=== PATIENT | male | born 1945 | race Caucasian/White ===

== ENCOUNTER 2021-06-09 10:43 | Emergency (ER) | payer MEDICARE, OTHER, SELFPAY ==
--- NOTE | ~2021-06-09 | CT_ITS ---
EXAMINATION: CT HEAD WITHOUT CONTRAST CT CERVICAL SPINE WITHOUT CONTRAST CLINICAL INFORMATION: Reason for Exam fall hit head COMPARISON: CT of the cervical spine and head done on 04/25/2009. TECHNIQUE: Imaging was performed from the skull base to vertex without intravenous administration of contrast. In addition, helical noncontrast CT imaging was acquired through the cervical spine and source images were reviewed along with axial reconstructions and sagittal and coronal MPRs. This CT examination was performed using dose optimization techniques as appropriate, variously including the following: *Automated exposure control. *Adjustment of mA and/or kV according to patient size (this includes techniques or standardized protocols for targeted exams where dose is matched to indication/reason for exam; i.e. extremities or head). *Use of iterative reconstruction technique. Total exam dose-length product 766.64 mGy-cm FINDINGS: HEAD: No intracranial mass, hemorrhage, or midline shift is visualized. The ventricles and sulci are age-appropriate. No extra-axial collections are identified. Partial opacification of the visualized part of the right maxillary, bilateral ethmoidal, right sphenoidal sinuses with hyperdense material, suspicious for allergic fungal sinusitis. CERVICAL SPINE: Multilevel mild degenerative spondylosis related changes are present. Mild facet degenerative arthritic changes are also noted. There is no evidence of acute cervical spine fracture. Vertebral bodies remain normal in height, and alignment is anatomic. No prevertebral or paravertebral soft tissue abnormality is identified. Limited assessment of the lung apices is unremarkable. CT/CT cervical spine wo con IMPRESSION: 1. No acute intracranial pathology. 2. No CT evidence of acute cervical spine fracture or traumatic subluxation. 3. No significant change since most recent prior available CT scan of the head and cervical spine done on 05/25/2019, except for the interval development of paranasal sinus disease as described above.
[2021-06-09 10:46] VITALS: BP 163/70; PULSE 64; RESP 18; TEMP 37.3; O2SAT 97; BMI 26.5
--- NOTE | 2021-06-09 11:45 | PC.NURSE ---
Pt alert and oriented x3. Pt states this morning he feel 6 ft from ladder hitting his head on the concrete. Pt denies loc. no dizziness prior to fall. Ladder fell apart causing pt to fall. Swelling noted to the back of head. Pt's systolic BP low 170s on arrival to the ed. current bp 137/69. Pt c/o soreness with movement. Neuros intact, equal bilat upper and lower extremities. Stabilizing neck collar applied until further evaluation. no apparent distress noted.
--- NOTE | 2021-06-09 12:01 | ED.FALL ---
HPI - Fall General Chief Complaint: Fall Stated Complaint: fall Time Seen by Provider: 06/09/21 11:56 Source: patient Mode of arrival: ambulatory Limitations: no limitations History of Present Illness HPI Narrative: 75-year-old male on aspirin presents emergency department after a 6 ft fall from ladder he hit his head on the ground. Patient denies loss of conscious had some tingling in his hands when he initially fell he denies any pain any other areas he is moving all extremities well he he denies loss of consciousness denies nausea vomiting or diarrhea. MD complaint: fall Related Data Allergies Allergy/AdvReac Type Severity Reaction Status Date / Time Beta-Blockers Allergy Unknown SHORTNESS Unverified 07/26/20 14:47 (Beta-Adrenergic Bloc OF BREATH ezetimibe [From Zetia] Allergy Unknown MYALGIA Unverified 07/26/20 14:47 lisinopril [Lisinopril] Allergy Unknown RASH Unverified 07/26/20 14:47 Review of Systems Review of Systems: Review of systems: General: Patient denies any fever chills recent illness or falls Musculoskeletal: Denies back pain or body aches or other injuries HEENT: denies headache, runny nose, ear pain Respiratory: denies shortness of breath, cough Cardiovascular: no chest pain or palpitations : denies dysuria, frequency Abdomen: no nausea vomiting denies abdominal pain Extremities: no swelling, no pain Skin: no diaphoresis Yes all other systems are reviewed and are negative PMFSH Past Medical History Medical History (Updated 06/09/21 @ 13:54 by Dereck Graham DO) Asthma Heart attack Surgical History (Updated 06/09/21 @ 10:50 by Sharifa Snowden) History of open heart surgery Social History Social History Advance Directives: No Advance Directives Information Provided: Yes Physical Exam Vital Signs: Vital Signs: Last Vital Signs Temp 99.1 F 06/09/21 10:46 Pulse 64 06/09/21 10:46 Resp 18 06/09/21 10:46 BP 163/70 H 06/09/21 10:46 Pulse Ox 97 06/09/21 10:46 Body Mass Index 26.5 General: Well-appearing well-nourished in no signs of distress HEENT: No hematotympanum nasal septal hematoma patient has a large hematoma to the back of her head Neck: No signs of JVD, no masses no tenderness or lymphadenopathy Cardiovascular: Regular rate and rhythm Respiratory: Clear to auscultation bilaterally Abdomen: Soft nontender no masses Extremities: Normal pedal pulses no signs of edema Skin: Dry warm no rashes Back: No tenderness full ROM MDM - Fall MDM Narrative Medical decision making narrative: Patient looks well I will give patient for CT scan head neck patient does not want anything for pain at this time. There is no open wound from me to close. CT is okay. I will send the patient home. Medical Records Attestation: I reviewed the patient's medical records. Lab Data Attestation: I reviewed the patient's lab results. Discharge Plan Discharge Clinical Impression: Concussion without loss of consciousness, Head injury, Hematoma Patient Disposition: Home, Self-Care Instructions: Hematoma (ED), Concussion (ED), Head Injury (ED) Additional Instructions: Please take it easy the next few days. You can take tylenol or ibuprofen for your head. If you have any other concerns please return to the ED.
== END 2021-06-09 14:04 | disposition home or self-care (01) ==
PROVIDERS: Emergency Provider Student in an Organized Health Care Education/Training Program; PCP Internal Medicine
DX: S06.0X1A Concussion with loss of consciousness of 30 minutes or less, initial encounter (principal); S00.03XA Contusion of scalp, initial encounter; G44.309 Post-traumatic headache, unspecified, not intractable; M54.2 Cervicalgia; W17.89XA Other fall from one level to another, initial encounter; Y93.9 Activity, unspecified; Y92.9 Unspecified place or not applicable; Y99.9 Unspecified external cause status
CPT/HCPCS: 70450; 72125; 99283

== ENCOUNTER 2024-02-13 07:52 | Observation (INO) | payer MEDICARE, OTHER, SELFPAY ==
[2024-02-13] VITALS (10 sets, daily range): BP systolic 123–178; BP diastolic 64–78; PULSE 70–98; RESP 16–19; TEMP 36–37.2; O2SAT 88–98; BMI 27.3; BMI 26.9
--- NOTE | ~2024-02-13 | XR_ITS ---
EXAMINATION: XR CHEST CLINICAL INFORMATION: Dyspnea, lower extremity edema. COMPARISON: None available. TECHNIQUE: 2 views of the chest were obtained. FINDINGS: Midline sternotomy wires. Mediastinal surgical clips. Normal heart size. Diffuse interstitial prominence and parenchymal haziness. No dense consolidation, pleural effusion or pneumothorax. Thoracic spondylosis. No acute osseous findings. Visualized upper abdomen is within normal limits. XR/XR chest 2V IMPRESSION: Diffuse interstitial prominence and parenchymal haziness raising the possibility of pulmonary edema and/or atypical/viral infection. Recommend clinical correlation and short-term follow-up.
--- NOTE | 2024-02-13 08:01 | ED.GENADULT ---
HPI - General Adult General Chief complaint: Dyspnea Stated complaint: SOB Time Seen by Provider: 02/13/24 08:00 Source: patient, EMS and RN notes reviewed Mode of arrival: EMS Limitations: no limitations History of Present Illness HPI narrative: Patient is a 78-year-old male with history of asthma, HTN presenting to the emergency department with complaint of progressively worsening dyspnea over the past week. Reports dyspnea is worse with exertion. He reports occasional nonproductive cough, nasal congestion. Denies fevers. Denies chest pain or palpitations. Does endorse edema to left lower extremity which he feels is worse as the day progresses. Denies calf pain or swelling. Has been using albuterol inhaler with temporary relief. He does not have a nebulizer at home. Reports that his oxygen saturation was 80% on room air at home, upon EMS arrival patient was found to have oxygen saturation of 98% on room air. MD complaint: Dyspnea Onset (ago): week(s) Relieving factors: rest Exacerbating factors: movement Associated symptoms: cough Treatments prior to arrival: other Related Data Home Medications ?Medication ?Instructions ?Recorded ?Confirmed amlodipine 5 mg tablet 5 mg PO DAILY 02/13/24 02/13/24 aspirin 81 mg tablet,delayed 81 mg PO DAILY 02/13/24 02/13/24 release atorvastatin 40 mg tablet 40 mg PO DAILY 02/13/24 02/13/24 budesonide 90 mcg/actuation breath 1 inh inhalation BEDTIME 02/13/24 02/13/24 activated powder inhaler (Pulmicort Flexhaler) krill 1,000 mg-omega-3 170 mg-dha 1 cap PO DAILY 02/13/24 02/13/24 50 mg-epa 80 id-tmkuko-mglsg capsule (krill oil) lansoprazole 30 mg capsule,delayed 30 mg PO BID 02/13/24 02/13/24 release montelukast 10 mg tablet 10 mg PO DAILY 02/13/24 02/13/24 multivitamin 1 tab PO DAILY 02/13/24 02/13/24 triamcinolone acetonide 55 mcg 1 spray intranasal BEDTIME 02/13/24 02/13/24 nasal spray aerosol (Nasacort) Previous Rx's ?Medication ?Instructions ?Recorded albuterol sulfate 90 mcg/actuation 2 puff inhalation Q4-6H PRN 04/06/24 aerosol inhaler shortness of breath or wheezing #6.7 grams azithromycin 250 mg tablet 250 mg PO DAILY 4 days #4 tabs 02/13/24 prednisone 20 mg tablet 40 mg (2 x 20 mg) PO DAILY #8 tabs 02/13/24 Allergies Allergy/AdvReac Type Severity Reaction Status Date / Time Beta-Blockers Allergy Unknown SHORTNESS Verified 02/13/24 08:04 (Beta-Adrenergic Bloc OF BREATH ezetimibe [From Zetia] Allergy Unknown MYALGIA Verified 02/13/24 08:04 lisinopril [Lisinopril] Allergy Unknown RASH Verified 02/13/24 08:04 Review of Systems Review of Systems: As per HPI. Yes all other systems are reviewed and are negative Constitutional: Constitutional: Reports as per HPI [facility] Past Medical History Medical History (Updated 02/13/24 @ 16:47 by DEANNA Dang) GERD (gastroesophageal reflux disease) HLD (hyperlipidemia) HTN (hypertension) Heart attack Asthma Surgical History (Updated 02/13/24 @ 16:40 by DEANNA Dang) S/P CABG (coronary artery bypass graft) History of open heart surgery Social History Social History Household Members: Family and None Housing: House Do you presently have visiting nurse or other home services: No Patient Tobacco Use Status: Never used Tobacco Use of substances other than those prescribed or required for medical reasons: No Currently Displaying Signs/Symptoms of Drug Intoxication Withdrawal: No Have you been hit, kicked, punched, or otherwise hurt by someone within the past year? If so, by whom?: No Do you feel safe in your current relationship?: Yes Is there a partner from a previous relationship who is making you feel unsafe now?: No Are you made to feel afraid or neglected: No Advance Directives: No Do you have thoughts of harming others: None Do you have a plan to hurt others: No Plan Recently lost weight without trying: No Nutrition Risks: No Nutritional Risk Poor oral hygiene: No Physical Exam ED Vital Signs: Vital Signs - 24 hr 02/13/24 08:02 02/13/24 10:06 02/13/24 13:12 Temperature 98 F Pulse Rate 70 77 76 Respiratory Rate 18 19 17 Blood Pressure 123/69 124/68 135/73 Pulse Oximetry 97 92 95 Oxygen Delivery Method Room Air Room Air Nasal Cannula Oxygen Flow Rate 1 02/13/24 15:28 Temperature 98.9 F Pulse Rate 75 Respiratory Rate 16 Blood Pressure 128/72 Pulse Oximetry 93 Oxygen Delivery Method Nasal Cannula Oxygen Flow Rate 1.5 BMI result Body Mass Index 27.3 Vital signs have been reviewed and appear to be correct. Blood pressure normal. Heart rate normal. Respiratory rate normal. Temperature normal. Oxygen saturation normal. Const General: cooperative, healthy appearing and no acute distress Orientation/consciousness: oriented to person, oriented to place, oriented to time and patient oriented x3 Limitations: no limitations HENMS Head: Yes normocephalic and Yes atraumatic Ears: external ears normal General nose exam: Normal external nose present Face and sinus: Yes face symmetric Mouth: oropharynx normal and moist mucous membranes Throat: Yes uvula midline Eyes Pupils: Equal, round and reactive pupils present Neck Neck: Yes normal visual inspection, Yes supple and Yes no JVD Resp Effort & Inspection: normal respiratory effort and able to speak in complete sentences Auscultation: clear to auscultation bilaterally, no crackles and no wheezes Cardio Rate: regular rate Rhythm: regular rhythm Heart sounds: S1 normal heart sound present and S2 normal heart sound present GI Palpation (GI): Soft to palpation and nontender Auscultation: normoactive bowel sounds General: Yes no CVA tenderness Back/Spine/Pelvis Back: no CVA tenderness Skin General skin exam: elasticity normal and turgor normal Neuro General: oriented to person, oriented to place, oriented to time, patient oriented x3, moves all extremities, no focal motor deficits and CN's II-XI intact bilaterally Cranial nerves: Yes Equal, round and reactive pupils present Cognition (Neuro): normal cognition Extrem General: Yes full ROM, Yes capillary refill normal, Yes normal exam except as noted, Yes no pedal edema and Yes no calf tenderness Right lower extremity: ankle Details: no edema and foot Details: vascular exam Details: dorsalis pedis pulse present and posterior tibial pulse present Left lower extremity: ankle Details: pitting edema Details: pitting and 1+ and foot Details: vascular exam Details: dorsalis pedis pulse present and posterior tibial pulse present Psych Mental Status: mental status grossly normal Affect: normal affect Thought process: Normal thought process present Medications Administered Generic Name Dose Route Start Last Admin Trade Name Freq PRN Reason Stop Dose Admin Albuterol/Ipratropium 3 ml 02/13/24 16:00 02/13/24 21:35 Albuterol/Iprat 2.5/0.5mg 3 Ml Ampul.Neb INHALE 3 ml RQ4H WHILE AWAKE LACIE Administration Enoxaparin Sodium 40 mg 02/13/24 16:00 02/13/24 17:51 Enoxaparin Sodium 40 Mg/0.4 Ml Syringe SUBCUT 40 mg Q24H LACIE Administration Fluticasone Propionate 1 spray 02/13/24 21:00 02/13/24 23:34 Fluticasone Propionate Nasal [address] [place] NOSTRIL-B Not Given BEDTIME LACIE Methylprednisolone Sodium Succinate 40 mg 02/13/24 15:45 02/14/24 05:23 Methylprednisolone Sod Succ 40 Mg/Ml Vial IVPUSH 40 mg Q12H LACIE Administration Omeprazole 20 mg 02/14/24 06:30 02/14/24 05:23 Omeprazole 20 Mg Capsule. PO 20 mg BID@0630,1630 LACIE Administration Sodium Chloride 3 ml 02/13/24 16:00 02/13/24 23:25 0.9 % Sodium Chloride Flush 3 Ml Syringe IVFLUSH 3 ml QSHIFT LACIE Administration Discontinued Medications Generic Name Dose Route Start Last Admin Trade Name Freq PRN Reason Stop Dose Admin Azithromycin 500 mg 02/13/24 10:16 02/13/24 10:47 Azithromycin 500 Mg Tablet PO 02/13/24 10:17 500 mg ONCE ONE Administration Prednisone 40 mg 02/13/24 10:16 02/13/24 10:47 Prednisone 20 Mg Tablet PO 02/13/24 10:17 40 mg ONCE ONE Administration Medical Decision Making Medical Decision Making [facility] Narrative: Patient is a 78-year-old male with history of asthma, HTN presenting to the emergency department with complaint of progressively worsening dyspnea over the past week. On exam patient is awake, A+Ox3, VS WNL, afebrile, normal neurological exam without focal deficits, physical exam findings as above. Given reported symptoms and physical exam findings, initial differential includes asthma exacerbation, viral illness, covid, flu, rsv, pneumonia, new CHF. Do not suspect sepsis @ 08:20. EKG shows sinus rhythm with occasional PVCs. Labs notable for no leukocytosis, mildly elevated alk phos, no prior available, troponin 4.6, will repeat to assess for delta, normal BNP. X-ray notable for diffuse interstitial prominence and parenchymal haziness. My interpretation is in agreement with the radiologist's interpretation. Given that BNP is WNL, patient has no crackles on exam, no JVD, feel this is due to a viral infection. Ambulatory O2 sat 92%. 10:52 Notified by RN that patient became hypoxic to 88-89% on room air during conversation. Will add d-dimer and repeat troponin at this time. 12:08 Troponin flat, D-dimer negative. Patient remains hypoxic at 90-92% on room air while sitting, 88-90% on ambulation. Admission accepted by medicine service. Differential Diagnosis Differential Diagnoses: The differential diagnosis associated with the presentation includes As per [facility] Admission/Observation Consideration of admission/observation: Escalation of care including admission/observation considered Patient would have been admitted to the hospital had their work up had any findings where hospital admission was appropriate and their clinical presentation warranted hospital admission. Consult Healthcare Provider Management of the patient was discussed with: Hospitalist Lab Data [facility] Lab Attestation statement: I reviewed the patient's lab results. as per [facility] 02/13/24 08:29 02/13/24 08:29 Labs: Lab Results 02/13/24 02/13/24 02/13/24 Range/Units 08:29 08:37 10:57 WBC 5.2 (4.8-10.8) X10*3/uL RBC 5.45 (4.60-5.80) X10*6/uL Hgb 15.0 (14.0-18.0) g/dl Hct 45.5 (42.0-52.0) % MCV 83.5 (80.0-98.0) fL MCH 27.5 (27.0-33.0) pg MCHC 33.0 (31.0-36.0) g/dl RDW 15.0 (11.0-16.0) % Plt Count 198 (160-400) X10*3/uL MPV 9.6 (9.4-12.4) fL Immature Gran % (Auto) 0.2 (0.0-0.4) % Neut % (Auto) 74.5 H (45-73) % Lymph % (Auto) 10.4 L (20-40) % [place] % (Auto) 11.4 H (2-11) % Eos % (Auto) 2.7 (0-4) % Baso % (Auto) 0.8 (0-2) % Lymph # (Auto) 0.5 L (1.2-4.9) X10*3/uL [place] # (Auto) 0.6 (0.1-1.2) X10*3/uL Eos # (Auto) 0.1 (0.0-0.4) X10*3/uL Baso # (Auto) 0.0 (0.0-0.2) X10*3/uL Abs Immat Gran (auto) 0.01 (0.00-0.03) X10*3/uL Absolute Neuts (auto) 3.9 (2.0-8.3) x10*3/uL Absolute Nucleated RBC 0.000 (0.0-0.012) X10*3/uL Nucleated RBC % (auto) 0.0 (0.0-0.2) /100WBC D-Dimer High Sensitivty < 150 NG/ML Sodium 142 (135-145) mmol/L Potassium 3.8 (3.3-5.1) mmol/L Chloride 107 (96-108) mmol/L Carbon Dioxide 27 (22-29) mmol/L Anion Gap 12 (12-20) BUN 12 (9-16) mg/dL Creatinine 0.85 (0.5-1.4) mg/dL Estim Creat Clear Calc 72.7 Estimated GFR > 60 Random Glucose 128 H (60-115) mg/dL Calcium 9.8 (8.4-10.2) mg/dL Magnesium 2.2 (1.6-2.6) mg/dL Total Bilirubin 0.5 (0.0-1.0) mg/dL AST 20 (5-37) U/L ALT 17 (0-40) U/L Alkaline Phosphatase 132 H (39-117) U/L Troponin I High Sens 4.6 4.9 (<3.5-35.0) ng/L B-Natriuretic Peptide 35 (<100) pg/mL Total Protein 7.2 (6.5-8.0) g/dL Albumin 4.0 (3.5-5.0) g/dL Urine Color Yellow Urine Appearance Clear Urine pH 7.0 (5.0-9.0) Ur Specific [place] 1.010 (1.005-1.025) Urine Protein Negative (Neg-Trace) mg/dL Urine Glucose (UA) Negative (Negative) mg/dL Urine Ketones Negative (Negative) mg/dL Urine Blood Negative (Negative) Urine Nitrite Negative (Negative) Ur Leukocyte Esterase Negative (Negative) Urine RBC 0-2 (0-2) /HPF Urine WBC 0-5 (0-5) /HPF Ur Squamous Epith Cells 0-2 (0-2) /HPF Urine Bacteria None Seen (None Seen) Hyaline Casts 0-2 (0-2) /LPF Influenza Type A (PCR) NEGATIVE (Negative) Influenza Type B (PCR) NEGATIVE (Negative) RSV RNA Qual (PCR) NEGATIVE (Negative) SARS-CoV-2 RNA (RT-PCR) NEGATIVE (Negative) Independent Interpretation I performed an independent interpretation of an: EKG (sinus rhythm with sinus arrhythmia, occasional PVCs, normal [place] interval, QTc) and Plain X-Ray Interpretation: parenchymal haziness consistent with viral infection Radiology Impression Discussion of test interpretation with radiology: I have reviewed the radiologist's reading. Radiologist Impression: XR/XR chest 2V IMPRESSION: Diffuse interstitial prominence and parenchymal haziness raising the possibility of pulmonary edema and/or atypical/viral infection. Recommend clinical correlation and short-term follow-up. External Record Review External record reviewed: Inpatient record, Office record and Outpatient record Prescription Management I considered prescription management with: Antibiotic and Other Discharge Plan Discharge Clinical Impression: Asthma with exacerbation, Viral upper respiratory infection Patient Disposition: Admitted As Inpatient Interventions: Admission Worksheet (ED) Last Done: 02/13/24 20:39 Discharge Date/Time: 02/13/24 20:40
--- NOTE | 2024-02-13 08:17 | ECG_ITS ---
Test Reason : DYPSNEA Blood Pressure : / mmHG Vent. Rate : 076 BPM Atrial Rate : 076 BPM P-R Int : 178 ms QRS Dur : 082 ms QT Int : 372 ms P-R-T Axes : -02 020 084 degrees QTc Int : 418 ms Sinus rhythm with sinus arrhythmia with occasional Premature ventricular complexes Nonspecific ST abnormality Abnormal ECG No previous ECGs available Referred By: Generic ED Physician Electronically Signed By:LANDY LANCE MD
[2024-02-13 08:35] LABS: MANUAL DIFF FLAG NO
[2024-02-13 08:52] LABS: Basophils Percent Auto 0.8 % (0-2); Eosinophils Absolute Auto 0.1 X10*3/uL (0.0-0.4); Eosinophils Percent Auto 2.7 % (0-4); Hematocrit 45.5 % (42.0-52.0); Imm Gran Abs Auto 0.01 X10*3/uL (0.00-0.03); Imm Gran Pct Auto 0.2 % (0.0-0.4); Lymphocytes Absolute Auto 0.5 X10*3/uL (1.2-4.9); Lymphocytes Percent Auto 10.4 % (20-40); Mean Corpuscular Hemoglobin 27.5 pg (27.0-33.0); Mean Corpuscular Volume 83.5 fL (80.0-98.0); Mean Platelet Volume 9.6 fL (9.4-12.4); Monocytes Absolute Auto 0.6 X10*3/uL (0.1-1.2); Monocytes Percent Auto 11.4 % (2-11); Neutrophils Absolute Auto 3.9 x10*3/uL (2.0-8.3); Neutrophils Percent Auto 74.5 % (45-73); Platelet Count 198 X10*3/uL (160-400); Red Blood Count 5.45 X10*6/uL (4.60-5.80); White Blood Count 5.2 X10*3/uL (4.8-10.8)
[2024-02-13 08:52] LABS: Appearance Urine Clear; Color Urine Yellow; Glucose Urine UA Negative (Negative); Leukocyte Esterase Urine Negative (Negative); Nitrite Urine Negative (Negative); Urine Blood Negative (Negative); Urine Ketones Negative (Negative); Urine Protein Negative (Neg-Trace)
[2024-02-13 08:54] LABS: Alanine Aminotransferase 17 U/L (0-40); Alkaline Phosphatase 132 U/L (39-117); Anion Gap 12 (12-20); Aspartate Amino Transferase 20 U/L (5-37); Bilirubin Total 0.5 mg/dL (0.0-1.0); Blood Urea Nitrogen 12 mg/dL (9-16); Calcium 9.8 mg/dL (8.4-10.2); Carbon Dioxide 27 mmol/L (22-29); Chloride 107 mmol/L (96-108); Creatinine Clr Calc Pharmacy 72.7; Estimated Glomerular Filt Rate > 60; Glucose Random 128 mg/dL (60-115); Magnesium 2.2 mg/dL (1.6-2.6); Potassium 3.8 mmol/L (3.3-5.1); Sodium 142 mmol/L (135-145); Total Protein 7.2 g/dL (6.5-8.0)
[2024-02-13 08:57] LABS: Bacteria Urine None Seen (None Seen); Hyaline Casts Urine 0-2 /LPF (0-2); RBC Urine 0-2 /HPF (0-2); Squamous Epithelial Cell Urine 0-2 /HPF (0-2); WBC Urine 0-5 /HPF (0-5)
[2024-02-13 09:00] LABS: B Type Natriuretic Peptide 35 pg/mL (<100)
[2024-02-13 09:01] LABS: Troponin-I High Sensitivity 4.6 ng/L (<3.5-35.0)
[2024-02-13 09:34] LABS: Influenza A PCR NEGATIVE (Negative); Influenza B PCR NEGATIVE (Negative); Resp Syncy Virus RNA Qual PCR NEGATIVE (Negative); SARS COV2 PCR INHOUSE NEGATIVE (Negative)
[2024-02-13] MEDS: predniSONE 20 MG TABLET 40 MG PO (10:47)
[2024-02-13] MEDS: Azithromycin 500 MG TABLET PO (10:47)
[2024-02-13 11:29] LABS: Troponin-I High Sensitivity 4.9 ng/L (<3.5-35.0)
[2024-02-13 11:39] LABS: D Dimer High Sensitivity < 150 NG/ML
--- NOTE | 2024-02-13 14:03 | P.HPHOSP_ITS ---
History of Present Illness Date of Service: 02/13/24 Attending physician on admission: Bhavesh Morel Chief Complaint: SOB Pt is a 78-year-old female with a PMH significant for?mild intermittent asthma, HTN, HLD, CAD s/p CABG in 1998, and GERD who presents to the ED with?SOB and difficulty breathing for the past 1-2 weeks. Patient reports having trouble breathing that has been ?building up? over the past couple of weeks. Has been using his rescue inhaler with diminishing temporary relief. Presents to the emergency room today due to lingering and progressively worsening SOB. Also endorses postnasal drip and slight nonproductive cough. Denies history of smoking, and has not experienced an asthma attack since 1998. Denies recent travel or sick contacts. Is not on home O2. Denies chest pain/pressure, palpitations. No fever, chills, nausea, vomiting, abdominal pain. In the ED pt was hypoxic, desatting to 88% with ambulation on RA. Labs were grossly unremarkable. No leukocytosis. Stable H&H. D-dimer negative. No electrolyte abnormalities. Renal and hepatic function WNL. Serial troponins negative. BNP WNL at 35. Tested negative for flu, COVID, RSV. UA negative for UTI. CXR showed diffuse interstitial prominence and parenchymal haziness, question of pulmonary edema and/or atypical/viral infection. EKG demonstrated sinus rhythm with occasional PVC and nonspecific ST abnormality. Pt was treated with azithromycin and prednisone. Pt will be admitted to the hospital under observation for acute hypoxic respiratory failure in the setting of asthma exacerbation and acute bronchitis. Review of Systems 2 Review of Systems: SOB, difficulty breathing times 1-2 weeks Nonproductive cough Nasal congestion Denies chest pain/pressure, palpitations No fever, chills, nausea, vomiting, abdominal pain [facility] Medical History (Updated 02/13/24 @ 16:47 by DEANNA Dang) GERD (gastroesophageal reflux disease) HLD (hyperlipidemia) HTN (hypertension) Heart attack Asthma Surgical History (Updated 02/13/24 @ 16:40 by DEANNA Dang) S/P CABG (coronary artery bypass graft) History of open heart surgery Social History Advance Directives: No Meds Allergies Allergy/AdvReac Type Severity Reaction Status Date / Time Beta-Blockers Allergy Unknown SHORTNESS Verified 02/13/24 08:04 (Beta-Adrenergic Bloc OF BREATH ezetimibe [From Zetia] Allergy Unknown MYALGIA Verified 02/13/24 08:04 lisinopril [Lisinopril] Allergy Unknown RASH Verified 02/13/24 08:04 Home Medications ?Medication ?Instructions ?Recorded ?Confirmed ?Last Taken ?Type amlodipine 5 mg tablet 5 mg PO DAILY 02/13/24 02/13/24 Unknown History aspirin 81 mg tablet,delayed 81 mg PO DAILY 02/13/24 02/13/24 Unknown History release atorvastatin 40 mg tablet 40 mg PO DAILY 02/13/24 02/13/24 Unknown History budesonide 90 mcg/actuation breath 1 inh inhalation BEDTIME 02/13/24 02/13/24 Unknown History activated powder inhaler (Pulmicort Flexhaler) krill 1,000 mg-omega-3 170 mg-dha 1 cap PO DAILY 02/13/24 02/13/24 Unknown History 50 mg-epa 80 [id number] capsule (krill oil) lansoprazole 30 mg capsule,delayed 30 mg PO BID 02/13/24 02/13/24 02/13/24 08:00 History release montelukast 10 mg tablet 10 mg PO DAILY 02/13/24 02/13/24 Unknown History multivitamin 1 tab PO DAILY 02/13/24 02/13/24 Unknown History triamcinolone acetonide 55 mcg 1 spray intranasal BEDTIME 02/13/24 02/13/24 Unknown History nasal spray aerosol (Nasacort) Physical Exam 2 Vital Signs and Narrative: Vital Signs: Last Vital Signs Temp 98 F 02/13/24 08:02 Pulse 76 02/13/24 13:12 Resp 17 02/13/24 13:12 BP 135/73 02/13/24 13:12 Pulse Ox 95 02/13/24 13:12 O2 Del Method Nasal Cannula 02/13/24 13:12 O2 Flow Rate 1 02/13/24 13:12 BMI result Body Mass Index 27.3 Constitutional: Alert, in no acute distress. Mental Status: Oriented to person, place and time. Eyes: Pupils are equal, round, and reactive to light. Ear, Nose, and Throat: Oropharynx clear, mucous membranes moist. Ears and nose without deformities. Trachea midline. Respiratory: Clear to auscultation bilaterally. No wheezing, rales, or rhonchi. Cardiovascular: S1, S2 regular. No murmurs, rubs, or gallops. Gastrointestinal: Abdomen soft, non-tender, non-distended. Normal bowel sounds. Neurologic: Cranial nerves II-XII are grossly intact bilaterally. No focal neurological deficits. Moves all extremities spontaneously. Skin: Warm, dry. Extremities: No edema. Psychiatric: Normal mood and affect. Results Labs 02/13/24 08:29 02/13/24 08:29 Labs: Laboratory Results - last 24 hr 02/13/24 02/13/24 02/13/24 08:29 08:37 10:57 MCV 83.5 MCH 27.5 MCHC 33.0 RDW 15.0 Plt Count 198 MPV 9.6 Immature Gran % (Auto) 0.2 Neut % (Auto) 74.5 H Lymph % (Auto) 10.4 L [place] % (Auto) 11.4 H Eos % (Auto) 2.7 Baso % (Auto) 0.8 Lymph # (Auto) 0.5 L [place] # (Auto) 0.6 Eos # (Auto) 0.1 Baso # (Auto) 0.0 Abs Immat Gran (auto) 0.01 Absolute Neuts (auto) 3.9 Absolute Nucleated RBC 0.000 Nucleated RBC % (auto) 0.0 D-Dimer High Sensitivty < 150 Anion Gap 12 Estim Creat Clear Calc 72.7 Estimated GFR > 60 Random Glucose 128 H Calcium 9.8 Magnesium 2.2 Total Bilirubin 0.5 AST 20 ALT 17 Alkaline Phosphatase 132 H Troponin I High Sens 4.6 4.9 B-Natriuretic Peptide 35 Total Protein 7.2 Albumin 4.0 Urine Color Yellow Urine Appearance Clear Urine pH 7.0 Ur Specific [place] 1.010 Urine Protein Negative Urine Glucose (UA) Negative Urine Ketones Negative Urine Blood Negative Urine Nitrite Negative Ur Leukocyte Esterase Negative Urine RBC 0-2 Urine WBC 0-5 Ur Squamous Epith Cells 0-2 Urine Bacteria None Seen Hyaline Casts 0-2 Influenza Type A (PCR) NEGATIVE Influenza Type B (PCR) NEGATIVE RSV RNA Qual (PCR) NEGATIVE SARS-CoV-2 RNA (RT-PCR) NEGATIVE Imaging Radiologist's Impressions: Impressions Chest X-Ray 02/13/24 09:02 IMPRESSION: Diffuse interstitial prominence and parenchymal haziness raising the possibility of pulmonary edema and/or atypical/viral infection. Recommend clinical correlation and short-term follow-up. Assessment and Plan (1) Asthma with exacerbation: Status: Acute (2) Hypoxia: Status: Acute Plan Pt is a 78-year-old female with a PMH significant for?mild intermittent asthma, HTN, HLD, CAD s/p CABG in 1998, and GERD who presents to the ED with?SOB and difficulty breathing for the past 1-2 weeks. Pt will be admitted to the hospital under observation for acute hypoxic respiratory failure in the setting of asthma exacerbation and acute bronchitis. Acute hypoxic respiratory failure in the setting of asthma exacerbation and acute bronchitis Patient with SOB, ENNIS, nonproductive cough, satting as low as 88% on RA during interview and exam Will treat with DuoNebs, Solu-Medrol, benzonatate, and azithromycin Will check respiratory panel Titrate supplemental O2 >92, wean as tolerated Monitor respiratory status CAD/HLD Continue aspirin, statin HTN Continue amlodipine GERD PPI Full Code Attending:?Dr. Morel DVT Prophylaxis: Lovenox The patient will be admitted to the hospital under observation for acute hypoxic respiratory failure in the setting of acute asthma exacerbation and acute bronchitis. Pt will require hospitalization for administration of supplemental O2, IV steroids, breathing treatments, and close monitoring of respiratory status. Quality Stroke Does the patient have a stroke diagnosis?: No VTE Prior VTE?: No VTE Risk Level:: Medical - moderate - high VTE Device Contraindication: Treatment Not Indicated VTE Drug Contraindication: N/A - Med Ordered
--- NOTE | 2024-02-13 15:47 | PHA.MEDREC ---
Pharmacy Consult ? Medication Reconciliation Pharmacy has completed the medication reconciliation.
[2024-02-13] MEDS: Albuterol/Iprat 2.5/0.5MG 3 ML AMPUL.NEB INHALE ×2 (15:50→21:35)
[2024-02-13] MEDS: methylPREDNISolone Sod Succ 40 MG/ML VIAL IVPUSH (17:50)
[2024-02-13] MEDS: 0.9 % Sodium Chloride Flush 3 ML SYRINGE IVFLUSH ×2 (17:51→23:25)
[2024-02-13] MEDS: Enoxaparin Sodium 40 MG/0.4 ML SYRINGE SUBCUT (17:51)
[2024-02-14 03:24] VITALS: BP 130/68; PULSE 75; RESP 16; TEMP 36.3; O2SAT 97
[2024-02-14] MEDS: methylPREDNISolone Sod Succ 40 MG/ML VIAL IVPUSH (05:23)
[2024-02-14] MEDS: Omeprazole 20 MG CAPSULE.DR PO (05:23)
[2024-02-14 07:55] VITALS: BP 127/68; PULSE 75; RESP 18; TEMP 36.2; O2SAT 95
[2024-02-14 08:24] VITALS: PULSE 75; RESP 18; O2SAT 95
[2024-02-14] MEDS: Albuterol/Iprat 2.5/0.5MG 3 ML AMPUL.NEB INHALE ×2 (08:24→11:36)
[2024-02-14] MEDS: Multivitamin TABLET 1 TAB PO (08:33)
[2024-02-14] MEDS: Atorvastatin Calcium 40 MG TABLET PO (08:33)
[2024-02-14] MEDS: amLODIPine Besylate 5 MG TABLET PO (08:33)
[2024-02-14] MEDS: Aspirin Enteric Coated 81 MG TABLET.DR PO (08:33)
[2024-02-14] MEDS: Montelukast Sodium 10 MG TABLET PO (08:34)
[2024-02-14] MEDS: 0.9 % Sodium Chloride Flush 3 ML SYRINGE IVFLUSH (08:34)
[2024-02-14 10:41] LABS: Adenovirus PCR Not Detected (Not Detect.); Bordetella parapertussis PCR Not Detected (Not Detect.); Bordetella pertussis PCR Not Detected (Not Detect.); Chlamydia pneumoniae PCR Not Detected (Not Detect.); Coronavirus 229E PCR Not Detected (Not Detect.); Coronavirus HKU1 PCR Not Detected (Not Detect.); Coronavirus NL63 PCR Not Detected (Not Detect.); Coronavirus OC43 PCR Not Detected (Not Detect.); Human metapneumovirus PCR Not Detected (Not Detect.); Influenza A PCR Not Detected (Not Detect.); Influenza B PCR Not Detected (Not Detect.); Mycoplasma pneumoniae PCR Not Detected (Not Detect.); Parainfluenza 1 PCR Not Detected (Not Detect.); Parainfluenza 2 PCR Not Detected (Not Detect.); Parainfluenza 3 PCR Not Detected (Not Detect.); Parainfluenza 4 PCR Not Detected (Not Detect.); RSV PCR Not Detected (Not Detect.); Rhino/Enterovirus PCR Not Detected (Not Detect.)
[2024-02-14 10:43] LABS: SARS-CoV-2 PCR Not Detected (Not Detect.)
--- NOTE | 2024-02-14 10:47 | P.DS_ITS ---
DS: Providers Provider Date of Service: 02/14/24 Date of admission: 02/13/24 15:32 Date of discharge: 02/14/24 Primary care physician: Unknown Physician Attending physician on discharge: Bhavesh Morel Discharging clinician: Natacha Morel DS: Diagnosis Discharge Diagnosis (1) Asthma with exacerbation: Status: Acute (2) Hypoxia: Status: Acute DS: Summary Hospital Course Hospital Course: 78-year-old female with a PMH significant for?mild intermittent asthma, HTN, HLD, CAD s/p CABG in 1998, and GERD who presents to the ED with?SOB and difficulty breathing for the past 1-2 weeks. Patient reports having trouble breathing that has been ?building up? over the past couple of weeks. Has been using his rescue inhaler with diminishing temporary relief. Presents to the emergency room today due to lingering and progressively worsening SOB. Also endorses postnasal drip and slight nonproductive cough. Denies history of smoking, and has not experienced an asthma attack since 1998. Denies recent travel or sick contacts. Is not on home O2. Denies chest pain/pressure, palpitations. No fever, chills, nausea, vomiting, abdominal pain. In the ED pt was hypoxic, desatting to 88% with ambulation on RA. Labs were grossly unremarkable. No leukocytosis. Stable H&H. D-dimer negative. No electrolyte abnormalities. Renal and hepatic function WNL. Serial troponins negative. BNP WNL at 35. Tested negative for flu, COVID, RSV. UA negative for UTI. CXR showed diffuse interstitial prominence and parenchymal haziness, question of pulmonary edema and/or atypical/viral infection. EKG demonstrated sinus rhythm with occasional PVC and nonspecific ST abnormality. Pt was treated with azithromycin and prednisone. Pt will be admitted to the hospital under observation for acute hypoxic respiratory failure in the setting of asthma exacerbation and acute bronchitis. Hospital course: Patient was admitted for shortness of breath, nonproductive cough-found to have acute hypoxemic respiratory failure secondary to acute asthma exacerbation(mild intermittent asthma), possible acute bronchitis component vs mild atypical pneumonia , cxr showed mild increased interstial marking ,bnp negative , no edema ,ddimer negative : Patient was started on nebs, steroids, azithromycin,oxygen-with above supportive care patient seems to be improved-off oxygen, walking with a sats of 92-93% on room air. Patient will be going home with p.o. steroids and antibiotics. Plan: please complete azithromycin 500 mg po daily for 6 more days and prednisone 40 mg po daily for 4 more days. Please repeat chest imaging in 3-4 weeks to see resolution of chest x-ray finding. Above management discussed with the patient in detail length he understand and i n agreement with the above plan, time spent 35 minute. Time Attestation Total time managing care of this patient today: 35 mintues. Discharge Coordination Time (in mins): 35 min Quality: Safe Use of Opioids Does Pt have an Active Cancer Diagnosis on the Problem List?: No Quality: Stroke Does the patient have a stroke diagnosis?: No Physical Exam Vital Signs: Vital Signs: Last Vital Signs Temp 97.2 F 02/14/24 07:55 Pulse 75 02/14/24 08:24 Resp 18 02/14/24 08:24 BP 127/68 02/14/24 07:55 Pulse Ox 95 02/14/24 07:55 O2 Del Method Nasal Cannula 02/14/24 07:55 O2 Flow Rate 1 02/14/24 07:55 BMI result Body Mass Index 26.9 Appearance: Alert.? Oriented X3. cvs: rrr, [id number] , no murmur res: clear to auscultation ,no rhonchii or wheezing abd: no rebound or guarding ,nt, bs present. ext pulses present , no cyanosis . neuro: axo3 , nonfocal. DS: Data Data Completed and Pending Labs on day of discharge: Laboratory Results - last 24 hr 02/13/24 02/13/24 02/13/24 10:57 15:32 16:31 D-Dimer High Sensitivty < 150 Troponin I High Sens 4.9 Respiratory Panel Lin Cancelled See Note Adenovirus (Rapid PCR) Cancelled Not Detected B.pert (TEM-PCR) Cancelled Not Detected B.parapertussis DNA PCR Cancelled Not Detected C. pneumoniae DNA (PCR) Cancelled Not Detected Coronavirus OC43 (PCR) Cancelled Not Detected Coronavirus HKU1 (PCR) Cancelled Not Detected Coronavirus 229E (PCR) Cancelled Not Detected Coronavirus NL63 (PCR) Cancelled Not Detected Human Metapneumovir PCR Cancelled Not Detected Influenza A (RT-PCR) Cancelled Not Detected Influenza B (RT-PCR) Cancelled Not Detected M. pneumoniae (PCR) Cancelled Not Detected Parainfluenza 1 (PCR) Cancelled Not Detected Parainfluenza 2 (PCR) Cancelled Not Detected Parainfluenza 3 (PCR) Cancelled Not Detected Parainfluenza 4 (PCR) Cancelled Not Detected RSV (PCR) Cancelled Not Detected Entero/Rhino (PCR) Cancelled Not Detected SARS-CoV-2 RNA (RT-PCR) Cancelled Not Detected Imaging Chest x-ray: Radiologist's impression: ITS Impressions Chest X-Ray 02/13/24 09:02 IMPRESSION: Diffuse interstitial prominence and parenchymal haziness raising the possibility of pulmonary edema and/or atypical/viral infection. Recommend clinical correlation and short-term follow-up. Discharge Plan Discharge Anticipated Discharge Date/Time: 02/14/24 10:44 Patient Disposition: Home, Self-Care Discharge Diagnosis: Acute hypoxemic respiratory failure secondary to asthma exacerbation (mild intermittent asthma), possible acute bronchitis Referrals: Physician,Unknown J [Primary Care Provider] - 1 Week Discharge Medications: New prednisone 20 mg tablet 40 mg PO DAILY Qty: 8 0RF albuterol sulfate 90 mcg/actuation HFA aerosol inhaler 2 puff inhalation Q4-6H PRN (Reason: shortness of breath or wheezing) Qty: 6.7 0RF azithromycin 500 mg tablet 500 mg PO DAILY 6 Days Qty: 6 0RF Continued multivitamin Tablet 1 tab PO DAILY atorvastatin 40 mg tablet 40 mg PO DAILY amlodipine 5 mg tablet 5 mg PO DAILY aspirin 81 mg Tablet,Delayed Release (Dr/Ec) 81 mg PO DAILY lansoprazole 30 mg capsule,delayed release(DR/EC) 30 mg PO BID triamcinolone acetonide [Nasacort] 55 mcg Aerosol,[place] 1 spray INTRANASAL BEDTIME Rx Instructions: administer into each nostril montelukast 10 mg tablet 10 mg PO DAILY Pulmicort Flexhaler 90 mcg/actuation Aerosol Powdr Breath Activated 1 inh INHALATION BEDTIME krill oil [phone] mg Capsule 1 cap PO DAILY Discharge Orders: Discharge Order (Routine); Ordered 02/14/24 Ordered By: Bhavesh Morel Diet: Advance to usual diet Activity on Discharge: As tolerated Stand Alone Forms: Patient Portal Discharge page Print Language: Persian Activity Restrictions/Additional Instructions: You were evaluated in the emergency department today for shortness of breath. You are being treated with an antibiotic, please complete the full course as prescribed. You are also being prescribed a short course of steroids to decrease inflammation. You are being prescribed an inhaler which you can use every 4-6 hours as needed for shortness of breath. Please follow-up with your [facility] care provider this week. Return to the emergency department if you develop worsening shortness of breath, difficulty breathing, chest pain, fever not improved with Tylenol or ibuprofen, or any other concerning symptoms. Care Plan Goals: please complete azithromycin 250 mg po daily and prednisone 40 mg po daily for 4 more days. Health Concerns: as above. Plan of Treatment: as above. Assessment: as above. Patient Instructions: Asthma (DC), Upper Respiratory Infection (DC), Viral Syndrome (ED)
--- NOTE | 2024-02-14 11:04 | MHC.CM.PN ---
pt dcd home no servies
[2024-02-14 11:39] VITALS: PULSE 84; RESP 18; O2SAT 98
== END 2024-02-14 13:42 | disposition home or self-care (01) ==
LOC: HO.ED 12:59 → HO.EDOVER 15:45 → HO.S3 16:08
PROVIDERS: Registered Nurse Emergency; Admitting Provider Student in an Organized Health Care Education/Training Program; Emergency Provider Student in an Organized Health Care Education/Training Program; Visit Provider Internal Medicine
DX: J96.01 Acute respiratory failure with hypoxia (principal); J45.21 Mild intermittent asthma with (acute) exacerbation; I10 Essential (primary) hypertension; E78.5 Hyperlipidemia, unspecified; I25.10 Atherosclerotic heart disease of native coronary artery without angina pectoris; K21.9 Gastro-esophageal reflux disease without esophagitis; Z11.52 Encounter for screening for COVID-19; Z20.828 Contact with and (suspected) exposure to other viral communicable diseases; Z95.1 Presence of aortocoronary bypass graft
CPT/HCPCS: 0241U; 36415; 71046; 80053; 81001; 83735; 83880; 84484; 85025; 85379; 87633; 93005; 94640; 96372; 96374; 96376; 99221; 99285; J1650; J2919; J2920

== ENCOUNTER → 2024-02-13 08:17 | Outpatient (BNV) | payer MEDICARE, OTHER, SELFPAY | PROVIDERS: Emergency Provider Student in an Organized Health Care Education/Training Program; Visit Provider Internal Medicine Cardiovascular Disease | DX: R94.31 Abnormal electrocardiogram [ECG] [EKG] (principal) | CPT/HCPCS: 93010 ==

== ENCOUNTER → 2024-02-13 15:32 | Outpatient (BNV) | payer MEDICARE, OTHER, SELFPAY | PROVIDERS: Admitting Provider Student in an Organized Health Care Education/Training Program; Emergency Provider Student in an Organized Health Care Education/Training Program; Visit Provider Student in an Organized Health Care Education/Training Program | DX: J96.01 Acute respiratory failure with hypoxia (principal); J45.31 Mild persistent asthma with (acute) exacerbation; J20.9 Acute bronchitis, unspecified | CPT/HCPCS: 99222; 99239 ==

== ENCOUNTER 2024-02-19 19:21 | Emergency (ER) | payer MEDICARE, OTHER, SELFPAY ==
--- NOTE | ~2024-02-19 | XR_ITS ---
EXAMINATION: XR CHEST CLINICAL INFORMATION: Shortness of breath. COMPARISON: Chest radiograph 02/13/2024. TECHNIQUE: 2 views of the chest were obtained. FINDINGS: Stable prominence of the cardiomediastinal silhouette. Midline sternotomy wires and mediastinal surgical clips redemonstrated. Minimally decreased interstitial thickening and parenchymal haziness. No focal consolidation, pleural effusion or pneumothorax. Thoracic spondylosis. No acute osseous findings. XR/XR chest 2V IMPRESSION: 1. Minimally decreased interstitial thickening and parenchymal haziness. 2. No focal consolidation, pleural effusion or pneumothorax.
--- NOTE | 2024-02-19 19:33 | ECG_ITS ---
Test Reason : SOB Blood Pressure : / mmHG Vent. Rate : 082 BPM Atrial Rate : 082 BPM P-R Int : 186 ms QRS Dur : 078 ms QT Int : 354 ms P-R-T Axes : 107 021 081 degrees QTc Int : 413 ms Normal sinus rhythm Septal infarct , age undetermined T wave abnormality, consider lateral ischemia Abnormal ECG When compared with ECG of 13-FEB-2024 08:32, Premature ventricular complexes are no longer Present Septal infarct is now Present Referred By: Rose Marie Gordillo Electronically Signed By:Vik Pisano
[2024-02-19 19:37] VITALS: BP 141/61; BP 150/80; PULSE 82; PULSE 83; RESP 12; O2SAT 95; BMI 27.1
--- NOTE | 2024-02-19 19:53 | ED_ITS ---
HPI - General Adult General Chief complaint: Dyspnea Stated complaint: from home, dx bronchitis, diff breathing Time Seen by Provider: 02/19/24 19:29 Source: patient Mode of arrival: EMS History of Present Illness HPI narrative: 78-year-old male who is brought in by EMS and states that he has recently been treated with azithromycin and steroids for a bronchitis in has completed the course and had a follow-up appointment yesterday with his primary care provider but last night began feeling as though he was suffocating and stating he did not feel well but other than that unable to better quantify or characterize how he is feeling currently, he also states that he has had tremors, he does endorse that he drinks wine nightly with a last consumption of this evening. He otherwise denies any fever, chills, abdominal pain/nausea/vomiting or dysuria. Related Data Home Medications ?Medication ?Instructions ?Recorded ?Confirmed amlodipine 5 mg tablet 5 mg PO DAILY 02/13/24 02/13/24 aspirin 81 mg tablet,delayed 81 mg PO DAILY 02/13/24 02/13/24 release atorvastatin 40 mg tablet 40 mg PO DAILY 02/13/24 02/13/24 budesonide 90 mcg/actuation breath 1 inh inhalation BEDTIME 02/13/24 02/13/24 activated powder inhaler (Pulmicort Flexhaler) krill 1,000 mg-omega-3 170 mg-dha 1 cap PO DAILY 02/13/24 02/13/24 50 mg-epa 80 ql-zqwecd-mfiox capsule (krill oil) lansoprazole 30 mg capsule,delayed 30 mg PO BID 02/13/24 02/13/24 release montelukast 10 mg tablet 10 mg PO DAILY 02/13/24 02/13/24 multivitamin 1 tab PO DAILY 02/13/24 02/13/24 triamcinolone acetonide 55 mcg 1 spray intranasal BEDTIME 02/13/24 02/13/24 nasal spray aerosol (Nasacort) Previous Rx's ?Medication ?Instructions ?Recorded albuterol sulfate 90 mcg/actuation 2 puff inhalation Q4-6H PRN 02/13/24 aerosol inhaler shortness of breath or wheezing #6.7 grams prednisone 20 mg tablet 40 mg (2 x 20 mg) PO DAILY #8 tabs 02/13/24 azithromycin 500 mg tablet 500 mg PO DAILY 6 days #6 tabs 02/14/24 Allergies Allergy/AdvReac Type Severity Reaction Status Date / Time Beta-Blockers Allergy Unknown SHORTNESS Verified 02/19/24 19:40 (Beta-Adrenergic Bloc OF BREATH ezetimibe [From Zetia] Allergy Unknown MYALGIA Verified 02/19/24 19:40 lisinopril [Lisinopril] Allergy Unknown RASH Verified 02/19/24 19:40 Review of Systems 2 Review of Systems: Pertinent positives and negatives as stated in [facility] Past Medical History Source: nursing notes reviewed Medical History GERD (gastroesophageal reflux disease) HLD (hyperlipidemia) HTN (hypertension) Heart attack Asthma Surgical History S/P CABG (coronary artery bypass graft) History of open heart surgery Social History Social History Household Members: Family and None Housing: House Do you presently have visiting nurse or other home services: No Patient Tobacco Use Status: Never used Tobacco Smoked in Last 30 Days: No Use of substances other than those prescribed or required for medical reasons: No Advance Directives: No Advance Directives Information Provided: Yes Physical Exam ED Vital Signs: Vital Signs - 24 hr 02/19/24 19:37 02/19/24 22:12 Pulse Rate 83 94 Respiratory Rate 12 18 Blood Pressure 141/61 H Pulse Oximetry 95 Oxygen Delivery Method Room Air BMI result Body Mass Index 27.1 VITAL SIGNS: Reviewed. GENERAL: Well developed, well nourished, in no acute distress. HEAD: Normocephalic/atraumatic EYES: PERRLA, EOMI EARS: Ext canals without abnormality, TMs non-bulging and non-erythematous NOSE: Nares patent bilateral OROPHARYNX: no oral lesions noted, posterior pharynx clear and non-erythematous without noted tonsillar enlargement/erythema/exudates NECK: Supple, no adenopathy LUNGS: Normal breath sounds. No adventitious sounds or accessory muscle use. SpO2<95> CARDIOVASCULAR: Regular rate and rhythm without noted murmurs, no JVD or lower extremity edema. ABDOMEN: Soft, non-tender, non-distended with bowel sounds. MUSCULOSKELETAL: No tenderness, deformities, or effusions noted on gross inspection. EXTREMITIES: No cyanosis, clubbing or edema. SKIN: Inspection of the skin reveals no rashes NEUROLOGIC: Alert and oriented x 4. Strength and sensation to light touch were grossly intact x 4. Medications Administered Discontinued Medications Generic Name Dose Route Start Last Admin Trade Name Alfredoq PRN Reason Stop Dose Admin Albuterol/Ipratropium 3 ml 02/19/24 21:57 02/19/24 22:08 Albuterol/Iprat 2.5/0.5mg 3 Ml Ampul.Neb INHALE 02/19/24 21:58 3 ml ONCE ONE Administration Medical Decision Making Medical Decision Making [facility] Narrative: 1955: 78-year-old male with history and clinical presentation, DDX: Pneumonia, electrolyte disturbance, cardiac etiology I reviewed all investigations and hematologic indices negative for leukocytosis/anemia/thrombocytopenia. Chemistry to see is negative for MIGUEL/electrolyte derangements and high sensitivity troponin is chronically detected but not elevated and BNP is within normal limits. Chest x-ray negative for infiltrate or venous congestion otherwise my interpretation is in agreement with radiology's impression. Patient provided with a 3 mL DuoNeb. On re-evaluation and discussion of all results patient is primarily concerned for chronic and worsening neurologic type symptoms and has been to see a neurologist through the [facility] system and also seen by his primary care doctor with multiple evaluations. Patient assured that he will be given a referral to Neurology here at [facility] although he will need to call on Thursday morning and find out if they are able to see him and potentially provide a 2nd opinion. Differential Diagnosis Differential Diagnoses: The differential diagnosis associated with the presentation includes Please see the discussion above Admission/Observation Consideration of admission/observation: Escalation of care including admission/observation considered Please see the discussion above Lab Data [facility] Lab Attestation statement: I reviewed the patient's lab results. Please see the discussion above 02/19/24 19:56 02/19/24 19:56 Labs: Lab Results 02/19/24 02/19/24 Range/Units 19:56 19:58 WBC 7.4 (4.8-10.8) X10*3/uL RBC 5.49 (4.60-5.80) X10*6/uL Hgb 15.1 (14.0-18.0) g/dl Hct 45.1 (42.0-52.0) % MCV 82.1 (80.0-98.0) fL MCH 27.5 (27.0-33.0) pg MCHC 33.5 (31.0-36.0) g/dl RDW 14.5 (11.0-16.0) % Plt Count 195 (160-400) X10*3/uL MPV 9.5 (9.4-12.4) fL Immature Gran % (Auto) 0.5 H (0.0-0.4) % Neut % (Auto) 79.0 H (45-73) % Lymph % (Auto) 9.4 L (20-40) % [place] % (Auto) 10.6 (2-11) % Eos % (Auto) 0.4 (0-4) % Baso % (Auto) 0.1 (0-2) % Lymph # (Auto) 0.7 L (1.2-4.9) X10*3/uL [place] # (Auto) 0.8 (0.1-1.2) X10*3/uL Eos # (Auto) 0.0 (0.0-0.4) X10*3/uL Baso # (Auto) 0.0 (0.0-0.2) X10*3/uL Abs Immat Gran (auto) 0.04 H (0.00-0.03) X10*3/uL Absolute Neuts (auto) 5.9 (2.0-8.3) x10*3/uL Absolute Nucleated RBC 0.000 (0.0-0.012) X10*3/uL Nucleated RBC % (auto) 0.0 (0.0-0.2) /100WBC Sodium 142 (135-145) mmol/L Potassium 3.6 (3.3-5.1) mmol/L Chloride 106 (96-108) mmol/L Carbon Dioxide 25 (22-29) mmol/L Anion Gap 15 (12-20) BUN 15 (9-16) mg/dL Creatinine 0.69 (0.5-1.4) mg/dL Estim Creat Clear Calc 89.6 Estimated GFR > 60 Random Glucose 125 H (60-115) mg/dL Calcium 9.4 (8.4-10.2) mg/dL Troponin I High Sens 6.4 (<3.5-35.0) ng/L B-Natriuretic Peptide 45 (<100) pg/mL Independent Interpretation I performed an independent interpretation of an: EKG Interpretation: Normal sinus rhythm, HR-82, no STEMI, TX/QRS/QTC is within normal limits, on comparison with prior EKG from 02/13/2024 there are no acute changes. Radiology Impression Discussion of test interpretation with radiology: I have reviewed the radiologist's reading. Radiologist Impression: Please see the discussion above External Record Review External record reviewed: Outpatient record, Prior outpatient labs and Prior outpatient radiology Chronic Conditions Patient?s care impacted by: Hypertension Critical Care Time Critical Care Time Critical Care Time: Yes Total Critical Care Time: 30 Attestation: I personally attest to this time spent taking care of the patient. Discharge Plan Discharge Clinical Impression: Dyspnea Patient Disposition: Home, Self-Care Instructions: Dyspnea (ED) Additional Instructions: 1. Resume all home medications as prescribed. 2. Please call the office of Neurology on Thursday. 3. Please follow-up with your primary care doctor on Thursday. Return to the emergency room for any acute worsening of your symptoms. Prescriptions: No Action prednisone 20 mg tablet 40 mg PO DAILY Qty: 8 0RF albuterol sulfate 90 mcg/actuation HFA aerosol inhaler 2 puff inhalation Q4-6H PRN (Reason: shortness of breath or wheezing) Qty: 6.7 0RF multivitamin Tablet 1 tab PO DAILY atorvastatin 40 mg tablet 40 mg PO DAILY amlodipine 5 mg tablet 5 mg PO DAILY aspirin 81 mg Tablet,Delayed Release (Dr/Ec) 81 mg PO DAILY lansoprazole 30 mg capsule,delayed release(DR/EC) 30 mg PO BID triamcinolone acetonide [Nasacort] 55 mcg Aerosol,[place] 1 spray INTRANASAL BEDTIME Rx Instructions: administer into each nostril montelukast 10 mg tablet 10 mg PO DAILY Pulmicort Flexhaler 90 mcg/actuation Aerosol Powdr Breath Activated 1 inh INHALATION BEDTIME krill oil 1,[id number] mg Capsule 1 cap PO DAILY azithromycin 500 mg tablet 500 mg PO DAILY 6 Days Qty: 6 0RF Referrals: Martina Chavez MD [Primary Care Provider] - Tavon Porter MD [Physician] - Print Language: Montenegrin
[2024-02-19 20:04] LABS: MANUAL DIFF FLAG NO
[2024-02-19 20:05] LABS: Basophils Percent Auto 0.1 % (0-2); Eosinophils Percent Auto 0.4 % (0-4); Hematocrit 45.1 % (42.0-52.0); Hemoglobin 15.1 g/dl (14.0-18.0); Imm Gran Abs Auto 0.04 X10*3/uL (0.00-0.03); Imm Gran Pct Auto 0.5 % (0.0-0.4); Lymphocytes Absolute Auto 0.7 X10*3/uL (1.2-4.9); Lymphocytes Percent Auto 9.4 % (20-40); Mean Corpuscular HGB Conc 33.5 g/dl (31.0-36.0); Mean Corpuscular Hemoglobin 27.5 pg (27.0-33.0); Mean Corpuscular Volume 82.1 fL (80.0-98.0); Mean Platelet Volume 9.5 fL (9.4-12.4); Monocytes Absolute Auto 0.8 X10*3/uL (0.1-1.2); Monocytes Percent Auto 10.6 % (2-11); Neutrophils Absolute Auto 5.9 x10*3/uL (2.0-8.3); Platelet Count 195 X10*3/uL (160-400); Red Blood Count 5.49 X10*6/uL (4.60-5.80); Red Cell Distribution Width 14.5 % (11.0-16.0); White Blood Count 7.4 X10*3/uL (4.8-10.8)
[2024-02-19 20:17] LABS: Anion Gap 15 (12-20); Blood Urea Nitrogen 15 mg/dL (9-16); Calcium 9.4 mg/dL (8.4-10.2); Carbon Dioxide 25 mmol/L (22-29); Chloride 106 mmol/L (96-108); Creatinine Clr Calc Pharmacy 89.6; Estimated Glomerular Filt Rate > 60; Glucose Random 125 mg/dL (60-115); Potassium 3.6 mmol/L (3.3-5.1); Sodium 142 mmol/L (135-145)
[2024-02-19 20:24] LABS: B Type Natriuretic Peptide 45 pg/mL (<100)
[2024-02-19 20:25] LABS: Troponin-I High Sensitivity 6.4 ng/L (<3.5-35.0)
[2024-02-19] MEDS: Albuterol/Iprat 2.5/0.5MG 3 ML AMPUL.NEB INHALE (22:08)
[2024-02-19 22:12] VITALS: PULSE 94; RESP 18; O2SAT 95
[2024-02-19 23:27] VITALS: BP 140/65; PULSE 86; RESP 16; TEMP 37; O2SAT 94
== END 2024-02-19 23:28 | disposition home or self-care (01) ==
PROVIDERS: Emergency Provider Student in an Organized Health Care Education/Training Program; PCP Internal Medicine
DX: R06.00 Dyspnea, unspecified (principal); J45.909 Unspecified asthma, uncomplicated; I10 Essential (primary) hypertension; I25.2 Old myocardial infarction
CPT/HCPCS: 36415; 71046; 80048; 83880; 84484; 85025; 93005; 94640; 99284; 99285

== ENCOUNTER → 2024-02-19 19:33 | Outpatient (BNV) | payer MEDICARE, OTHER, SELFPAY | PROVIDERS: Emergency Provider Student in an Organized Health Care Education/Training Program; PCP Internal Medicine; Visit Provider Internal Medicine Cardiovascular Disease | DX: R94.31 Abnormal electrocardiogram [ECG] [EKG] (principal) | CPT/HCPCS: 93010 ==

== ENCOUNTER 2024-06-27 10:50 | Day surgery (SDC) | payer MEDICARE, OTHER, SELFPAY ==
[2024-06-13 07:21] VITALS: BMI 26.7
--- NOTE | 2024-06-23 13:00 | HO.ANESPROP2 ---
Documented by User: Ofelia Mccormick NP 06/23/24 13:02 HPI - Anesthesia Eval Consult details Narrative: 78yo M for Bilateral Levator Resect/Recess PMFSH Active Problems Active Problems: All Active Problems Hypoxia (Acute) Viral upper respiratory infection (Acute) Asthma with exacerbation (Acute) Past Medical History Medical History Bronchitis CAD (coronary artery disease) GERD (gastroesophageal reflux disease) HLD (hyperlipidemia) HTN (hypertension) Heart attack Asthma Surgical History Surgical History History of angioplasty Hx of cholecystectomy Hx of cardiac catheterization History of coronary artery stent placement S/P CABG (coronary artery bypass graft) History of open heart surgery Social History Social History Household Members: Family and None Housing: House Do you presently have visiting nurse or other home services: No Patient Tobacco Use Status: Never used Tobacco Advance Directives: No Advance Directives Information Provided: Yes Advance Directives on File: No Recently lost weight without trying: No Nutrition Risks: No Nutritional Risk Meds Allergies Allergy/AdvReac Type Severity Reaction Status Date / Time Beta-Blockers Allergy Unknown SHORTNESS Verified 02/19/24 19:40 (Beta-Adrenergic Bloc OF BREATH ezetimibe [From Zetia] Allergy Unknown MYALGIA Verified 02/19/24 19:40 lisinopril [Lisinopril] Allergy Unknown RASH Verified 02/19/24 19:40 Home Medications ?Medication ?Instructions ?Recorded ?Confirmed ?Last Taken ?Type amlodipine 5 mg tablet 5 mg PO DAILY 02/13/24 06/13/24 Unknown History aspirin 81 mg tablet,delayed 81 mg PO DAILY 02/13/24 06/13/24 Unknown History release atorvastatin 40 mg tablet 40 mg PO DAILY 02/13/24 06/13/24 Unknown History lansoprazole 30 mg capsule,delayed 30 mg PO BID 02/13/24 06/13/24 02/13/24 08:00 History release montelukast 10 mg tablet 10 mg PO DAILY 02/13/24 06/13/24 Unknown History multivitamin 1 tab PO DAILY 02/13/24 06/13/24 Unknown History triamcinolone acetonide 55 mcg 1 spray intranasal BEDTIME 02/13/24 02/13/24 Unknown History nasal spray aerosol (Nasacort) albuterol sulfate 90 mcg/actuation 1 inh inhalation Q4-6H PRN 06/13/24 06/13/24 Unknown History aerosol inhaler shortness of breath or wheezing coenzyme Q10 100 mg capsule 100 mg PO DAILY 06/13/24 06/13/24 Unknown History (CoQ-10) fluticasone 250 mcg-salmeterol 50 1 inh inhalation BID 06/13/24 06/13/24 Unknown History mcg/dose blistr powdr for inhalation fluticasone furoate 200 1 inh inhalation DAILY 06/13/24 06/13/24 Unknown History mcg-vilanterol 25 mcg/dose inhalation powder (Breo Ellipta) fluticasone propionate 50 1 spray intranasal DAILY 06/13/24 06/13/24 Unknown History mcg/actuation nasal spray,suspension glucosamine-chondroitin 250 mg-200 1 tab PO DAILY 06/13/24 06/13/24 Unknown History mg tablet (Osteo Bi-Flex) lactulose 10 gram/15 mL oral 30 ml PO BEDTIME PRN Constipation 06/13/24 06/13/24 Unknown History solution (Constulose) levalbuterol tartrate 45 1 puff inhalation Q4-6H PRN 06/13/24 06/13/24 Unknown History mcg/actuation aerosol inhaler Shortness Of Breath Or Wheezing omega 5-hdt-ygm-fish oil 1,000 mg 1 cap PO DAILY 06/13/24 06/13/24 Unknown History (120 mg-180 mg) capsule (Fish Oil) Exam Height,Weight and Vital Signs: Height 5 ft 10 in Weight 84.414 kg Assessment and Plan Assessment Anesthesia Assessment: Chart Reviewed Documented by User: Torito Chavez MD 06/27/24 11:31 [facility] Past Medical History Medical History Bronchitis CAD (coronary artery disease) GERD (gastroesophageal reflux disease) HLD (hyperlipidemia) HTN (hypertension) Heart attack Asthma Family History Family history of problems with anesthesia: No Surgical History Surgical History History of angioplasty Hx of cholecystectomy Hx of cardiac catheterization History of coronary artery stent placement S/P CABG (coronary artery bypass graft) History of open heart surgery History of Problems with Anesthesia: No Social History Social History Household Members: Family and None Housing: House Do you presently have visiting nurse or other home services: No Patient Tobacco Use Status: Never used Tobacco Advance Directives: No Advance Directives Information Provided: Yes Advance Directives on File: No Recently lost weight without trying: No Nutrition Risks: No Nutritional Risk Meds Allergies Allergy/AdvReac Type Severity Reaction Status Date / Time Beta-Blockers Allergy Unknown SHORTNESS Verified 02/19/24 19:40 (Beta-Adrenergic Bloc OF BREATH ezetimibe [From Zetia] Allergy Unknown MYALGIA Verified 02/19/24 19:40 lisinopril [Lisinopril] Allergy Unknown RASH Verified 02/19/24 19:40 Home Medications ?Medication ?Instructions ?Recorded ?Confirmed ?Last Taken ?Type amlodipine 5 mg tablet 5 mg PO DAILY 02/13/24 06/13/24 Unknown History aspirin 81 mg tablet,delayed 81 mg PO DAILY 02/13/24 06/13/24 Unknown History release atorvastatin 40 mg tablet 40 mg PO DAILY 02/13/24 06/13/24 Unknown History lansoprazole 30 mg capsule,delayed 30 mg PO BID 02/13/24 06/13/24 02/13/24 08:00 History release montelukast 10 mg tablet 10 mg PO DAILY 02/13/24 06/13/24 Unknown History multivitamin 1 tab PO DAILY 02/13/24 06/13/24 Unknown History triamcinolone acetonide 55 mcg 1 spray intranasal BEDTIME 02/13/24 02/13/24 Unknown History nasal spray aerosol (Nasacort) albuterol sulfate 90 mcg/actuation 1 inh inhalation Q4-6H PRN 06/13/24 06/13/24 Unknown History aerosol inhaler shortness of breath or wheezing coenzyme Q10 100 mg capsule 100 mg PO DAILY 06/13/24 06/13/24 Unknown History (CoQ-10) fluticasone 250 mcg-salmeterol 50 1 inh inhalation BID 06/13/24 06/13/24 Unknown History mcg/dose blistr powdr for inhalation fluticasone furoate 200 1 inh inhalation DAILY 06/13/24 06/13/24 Unknown History mcg-vilanterol 25 mcg/dose inhalation powder (Breo Ellipta) fluticasone propionate 50 1 spray intranasal DAILY 06/13/24 06/13/24 Unknown History mcg/actuation nasal spray,suspension glucosamine-chondroitin 250 mg-200 1 tab PO DAILY 06/13/24 06/13/24 Unknown History mg tablet (Osteo Bi-Flex) lactulose 10 gram/15 mL oral 30 ml PO BEDTIME PRN Constipation 06/13/24 06/13/24 Unknown History solution (Constulose) levalbuterol tartrate 45 1 puff inhalation Q4-6H PRN 06/13/24 06/13/24 Unknown History mcg/actuation aerosol inhaler Shortness Of Breath Or Wheezing omega 5-bss-lis-fish oil 1,000 mg 1 cap PO DAILY 06/13/24 06/13/24 Unknown History (120 mg-180 mg) capsule (Fish Oil) Exam Airway Mallampati Class: II TM Dist: >3cm Neck ROM: Full Assessment and Plan Assessment Anesthesia Assessment: Anesthesia Plan Discussed Final Anesthetic Review Family History of Problems with Anesthesia: No History of Problems with Anesthesia: No NPO: Yes ASA Class: III Final Preanesthetic Review: No Changes in Pt Med Stat, Meds/Allgs Chart Reviewed, Consent Obtained/Reviewed and Anes Risks/Benef Reviewed Patient Risk: Intermediate Procedure Risk: Low Anesthetic Plan Anesthetic Plan: MAC: Disposition: Standard PACU
[2024-06-27 11:01] VITALS: BMI 26.5
[2024-06-27 11:17] VITALS: BP 134/71; PULSE 68; RESP 16; TEMP 37.2; O2SAT 95
[2024-06-27] MEDS: Lactated Ringers 500 ML 50 ML IV (11:24)
--- NOTE | 2024-06-27 11:36 | P.CONAN_ITS ---
[facility] Active Problems Active Problems: All Active Problems (Updated 06/13/24 @ 06:59 by Jennifer Dempsey RN) Hypoxia (Acute) Viral upper respiratory infection (Acute) Asthma with exacerbation (Acute) Past Medical History Medical History Bronchitis CAD (coronary artery disease) GERD (gastroesophageal reflux disease) HLD (hyperlipidemia) HTN (hypertension) Heart attack Asthma Family History Family history of problems with anesthesia: No Surgical History Surgical History History of angioplasty Hx of cholecystectomy Hx of cardiac catheterization History of coronary artery stent placement S/P CABG (coronary artery bypass graft) History of open heart surgery History of Problems with Anesthesia: No Social History Social History Household Members: Family and None Housing: House Do you presently have visiting nurse or other home services: No Patient Tobacco Use Status: Never used Tobacco Advance Directives: No Advance Directives Information Provided: Yes Advance Directives on File: No Recently lost weight without trying: No Nutrition Risks: No Nutritional Risk Meds Allergies Allergy/AdvReac Type Severity Reaction Status Date / Time Beta-Blockers Allergy Unknown SHORTNESS Verified 02/19/24 19:40 (Beta-Adrenergic Bloc OF BREATH ezetimibe [From Zetia] Allergy Unknown MYALGIA Verified 02/19/24 19:40 lisinopril [Lisinopril] Allergy Unknown RASH Verified 02/19/24 19:40 Active Medications: Current Medications Albuterol Sulfate (Albuterol Sulfate (0.083%) 2.5 Mg/3 Ml Vial.Neb) 2.5 mg INHALE ONCE PRN PRN Reason: Shortness of Breath/Wheezing Lactated Ringer's (Lr) 500 mls @ 50 mls/hr IV .Q10H LACIE Stop: 06/27/24 21:14 Last Admin: 06/27/24 11:24 Dose: 50 mls/hr Povidone Iodine (Povidone Iodine 5 % Ophth Soln 30 Ml Bottle) 1 appl EYE-BOTH PREOP PRN PRN Reason: Pre-Op Surgical Implant Prophy Home Medications ?Medication ?Instructions ?Recorded ?Confirmed ?Last Taken ?Type amlodipine 5 mg tablet 5 mg PO DAILY 02/13/24 06/13/24 Unknown History aspirin 81 mg tablet,delayed 81 mg PO DAILY 02/13/24 06/13/24 Unknown History release atorvastatin 40 mg tablet 40 mg PO DAILY 02/13/24 06/13/24 Unknown History lansoprazole 30 mg capsule,delayed 30 mg PO BID 02/13/24 06/13/24 02/13/24 08:00 History release montelukast 10 mg tablet 10 mg PO DAILY 02/13/24 06/13/24 Unknown History multivitamin 1 tab PO DAILY 02/13/24 06/13/24 Unknown History triamcinolone acetonide 55 mcg 1 spray intranasal BEDTIME 02/13/24 02/13/24 Unknown History nasal spray aerosol (Nasacort) albuterol sulfate 90 mcg/actuation 1 inh inhalation Q4-6H PRN 06/13/24 06/13/24 Unknown History aerosol inhaler shortness of breath or wheezing coenzyme Q10 100 mg capsule 100 mg PO DAILY 06/13/24 06/13/24 Unknown History (CoQ-10) fluticasone 250 mcg-salmeterol 50 1 inh inhalation BID 06/13/24 06/13/24 Unknown History mcg/dose blistr powdr for inhalation fluticasone furoate 200 1 inh inhalation DAILY 06/13/24 06/13/24 Unknown History mcg-vilanterol 25 mcg/dose inhalation powder (Breo Ellipta) fluticasone propionate 50 1 spray intranasal DAILY 06/13/24 06/13/24 Unknown History mcg/actuation nasal spray,suspension glucosamine-chondroitin 250 mg-200 1 tab PO DAILY 06/13/24 06/13/24 Unknown History mg tablet (Osteo Bi-Flex) lactulose 10 gram/15 mL oral 30 ml PO BEDTIME PRN Constipation 06/13/24 06/13/24 Unknown History solution (Constulose) levalbuterol tartrate 45 1 puff inhalation Q4-6H PRN 06/13/24 06/13/24 Unknown History mcg/actuation aerosol inhaler Shortness Of Breath Or Wheezing omega 4-ncr-xub-fish oil 1,000 mg 1 cap PO DAILY 06/13/24 06/13/24 Unknown History (120 mg-180 mg) capsule (Fish Oil) Exam Height,Weight and Vital Signs: Height 5 ft 10 in Weight 83.915 kg Last Vital Signs Temp 98.9 F 06/27/24 11:17 Pulse 68 06/27/24 11:17 Resp 16 06/27/24 11:17 BP 134/71 06/27/24 11:17 Pulse Ox 95 06/27/24 11:17 O2 Del Method Room Air 06/27/24 11:17 Assessment and Plan Assessment Anesthesia Assessment: Anesthesia Plan Discussed and Chart Reviewed Final Anesthetic Review Family History of Problems with Anesthesia: No History of Problems with Anesthesia: No NPO: Yes ASA Class: III Final Preanesthetic Review: No Changes in Pt Med Stat, Meds/Allgs Chart Reviewed, Consent Obtained/Reviewed and Anes Risks/Benef Reviewed Patient Risk: Intermediate Procedure Risk: Low Anesthetic Plan Anesthetic Plan: MAC: Disposition: Standard PACU
--- NOTE | 2024-06-27 12:38 | MHC.SHP ---
Pre-Procedural Eval Section A - 24 Hr Update-Section A only Date of Service: 06/27/24 The patient is an INPATIENT: No Changes since office visit: No Cold of Flu in the past 2 weeks, No New Medical Problems, No Changes in Medication and No Patient answered all questions The patient has been examined within 24 hours of the surgical procedure. The History & Physical has been completed within 30 days and I have reviewed it.: Yes Section B - Complete if H&P > 30 days Chief Complaint: Unspecified ptosis of bilateral eyelids Allergies: Allergies Allergy/AdvReac Type Severity Reaction Status Date / Time Beta-Blockers Allergy Unknown SHORTNESS Verified 02/19/24 19:40 (Beta-Adrenergic Bloc OF BREATH ezetimibe [From Zetia] Allergy Unknown MYALGIA Verified 02/19/24 19:40 lisinopril [Lisinopril] Allergy Unknown RASH Verified 02/19/24 19:40 Plan Diagnosis/Plan: Unchanged I have reviewed the history and physical and performed a pertinent physical examination on my patient. No changes have occurred unless specified. Time Spent With Patient Time: Total time managing care of this patient today ____ minutes.
[2024-06-27 13:59] VITALS: BP 142/72; PULSE 71; RESP 12; TEMP 36.6; O2SAT 98
[2024-06-27 14:14] VITALS: BP 139/82; PULSE 64; RESP 18; TEMP 37.1; O2SAT 97
--- NOTE | 2024-06-30 15:53 | OP_ITS ---
DATE OF SERVICE: 06/27/2024 SURGEON: Rosendo Mora MD PREOPERATIVE DIAGNOSIS: Bilateral ptosis. POSTOPERATIVE DIAGNOSIS: Bilateral ptosis. PROCEDURE PERFORMED: ESTIMATED BLOOD LOSS: COMPLICATIONS: ANESTHESIA: MAC with local. ASSISTANTS: SPECIMENS: DESCRIPTION OF PROCEDURE: After obtaining informed consent, the patient was brought to the operating room suite and placed in the supine position. Lidocaine 1% was injected along the superior lid crease centrally. An incision was made with a 15 blade. Valerie scissors was utilized in a combination of blunt and sharp dissection going to the tarsal plate. Double-armed CV-7 _gortex to make a partial thickness passed through the tarsals, medial and lateral portion of the central lid, secured pocket was created with Valerie scissors with blunt dissection __superior to the incision____ positioned in place for adequate elevation. Attention was directed to the incision site which was then closed with 6-0 plain. Attention was directed to the _opposite side an__ incision was created in the superior lid crease centrally. Valerie scissors was then utilized to undermine down to the tarsal plate. Double-arm suture was then utilized _and passed partial thickness of the tarsal plate and positioned through the levator. The lid was then positioned in place _and suture was tied patient tolerated the procedure well and will be seen in followup. MD JULIANNA Cox/MODL / [id number] [facility]
== END 2024-06-27 14:33 | disposition home or self-care (01) ==
PROVIDERS: PCP Internal Medicine; Visit Provider Ophthalmology
PROC: (CPT 67904; principal; 2024-06-27 12:10)
DX: H02.403 Unspecified ptosis of bilateral eyelids (principal); H02.834 Dermatochalasis of left upper eyelid; H02.831 Dermatochalasis of right upper eyelid; I10 Essential (primary) hypertension; Z88.8 Allergy status to other drugs, medicaments and biological substances
CPT/HCPCS: 67904; J2250; J2405; J3010